=== PATIENT | male | born 1935 | race Caucasian/White ===

== ENCOUNTER 2017-09-04 17:06 | Emergency (ER) | payer BC ==
[~2017-09-04] VITALS: Ht 165.1 cm; Wt 83.5 kg
[2017-09-04 17:17] VITALS: Ht 165.1 cm; Wt 83.5 kg
[2017-09-04 20:54] LABS: BASOPHIL % 0.7 % (0-2); CALCIUM 8.2 mg/dL (8.5-10.1); CARBON DIOXIDE 22.7 mmol/L (21-32); CHLORIDE SERUM 103 mmol/L (98-107); CREATININE SERUM 0.8 mg/dL (0.7-1.3); GLUCOSE SERUM 100 mg/dL (74-106); PLATELET COUNT 181 x10^3mcL (130-400); POTASSIUM SERUM 3.6 mmol/L (3.5-5.1); RED CELL DISTRIBUTION WIDTH 13.7 % (11.5-14.5); SODIUM SERUM 136 mmol/L (136-145)
[2017-09-04 20:58] LABS: ALKALINE PHOSPHATASE 148 U/L (46-116); ALT/SGPT 23 U/L (16-63); AST/SGOT 28 U/L (15-37); BILIRUBIN TOTAL 0.47 mg/dL (0.20-1.00); TOTAL PROTEIN, SERUM 7.3 g/dL (6.4-8.2)
[2017-09-04 20:59] LABS: ALBUMIN 3.3 g/dL (3.4-5.0)
[2017-09-04 21:40] VITALS: BP 126/78
== END 2017-09-04 21:40 | disposition home or self-care (01) ==
LOC: ED 17:06
PROVIDERS: Emergency Medicine
DX: R59.0 Localized enlarged lymph nodes (principal); R07.89 Other chest pain; I10 Essential (primary) hypertension
CPT/HCPCS: Q0092

== ENCOUNTER 2020-02-13 15:53 | Inpatient (IN) | payer BC, MEDICAID ==
[~2020-02-13] VITALS: Ht 165.1 cm; Wt 69.1 kg
[2020-02-13 16:10] VITALS: Ht 165.1 cm; Wt 69.1 kg
[2020-02-13 16:49] LABS: BASOPHIL % 1.8 % (0-2); PLATELET COUNT 143 x10^3mcL (130-400); RED CELL DISTRIBUTION WIDTH 13.9 % (11.5-14.5)
[2020-02-13 16:55] LABS: CALCIUM 9.4 mg/dL (8.5-10.1); CARBON DIOXIDE 26.7 mmol/L (21-32); CHLORIDE SERUM 98 mmol/L (98-107); GLUCOSE SERUM 104 mg/dL (74-106); POTASSIUM SERUM 4.1 mmol/L (3.5-5.1); SODIUM SERUM 134 mmol/L (136-145)
[2020-02-13 17:04] LABS: ALBUMIN 4.2 g/dL (3.4-5.0); ALKALINE PHOSPHATASE 109 U/L (46-116); ALT/SGPT 31 U/L (16-63); BILIRUBIN TOTAL 1.1 mg/dL (0.20-1.00); TOTAL PROTEIN, SERUM 7.8 g/dL (6.4-8.2)
[2020-02-13 17:06] LABS: AST/SGOT 27 U/L (15-37)
[2020-02-13 17:38] LABS: T3 TOTAL 0.87 ng/mL
[2020-02-13 17:41] LABS: FREE T4 1.21 ng/dL (0.76-1.46); FREE THYROXINE INDEX 3.7 ug/dL (1.4-4.5); T4(THYROXINE) 9.9 ug/dL (4.7-13.3)
[2020-02-13] MEDS ORDERED: AMLODIPINE BESY10 M2 PO (18:29)
[2020-02-13] MEDS ORDERED: PANTOPRAZOLE SO20 M1 PO (18:29)
[2020-02-13] MEDS ORDERED: COZ50 PO (18:30)
[2020-02-13 20:02] LABS: microscopic required? NO
[2020-02-13 20:10] LABS: UA SPECIFIC GRAVITY <=1.005 (1.005-1.035); urine erythrocyte NEGATIVE (NEGATIVE)
[2020-02-13 20:13] LABS: CHOLESTEROL/HDL RATIO 2.4; MAGNESIUM 2.1 mg/dL (1.8-2.4); PHOSPHOROUS 3.6 mg/dL (2.5-4.9)
[2020-02-13 20:18] LABS: AMPHETAMINE QUAL UR NONE DETECTED (See below)
[2020-02-13 20:46] VITALS: BP 122/72
[2020-02-14] MEDS ORDERED: NOVAPLUS F0.05 MG/Ac (01:17)
[2020-02-14] MEDS ORDERED: PAROXETINE HCL10 MG (01:17)
[2020-02-14 06:12] VITALS: BP 126/78
[2020-02-14 07:15] LABS: PLATELET COUNT 165 x10^3mcL (130-400); RED CELL DISTRIBUTION WIDTH 14.2 % (11.5-14.5)
[2020-02-14 07:30] LABS: CALCIUM 8.9 mg/dL (8.5-10.1); CARBON DIOXIDE 24.6 mmol/L (21-32); CHLORIDE SERUM 104 mmol/L (98-107); CREATININE SERUM 0.8 mg/dL (0.7-1.3); GLUCOSE SERUM 80 mg/dL (74-106); MAGNESIUM 2.1 mg/dL (1.8-2.4); PHOSPHOROUS 3.4 mg/dL (2.5-4.9); SODIUM SERUM 138 mmol/L (136-145)
[2020-02-14 08:42] VITALS: BP 111/67
[2020-02-14 11:58] VITALS: BP 120/88
[2020-02-14] MEDS ORDERED: MAAL PO (13:21)
[2020-02-14] MEDS ORDERED: PRILOSEC OTC20 M1 PO (13:22)
[2020-02-14 17:07] VITALS: BP 102/68
[2020-02-14 20:34] VITALS: BP 103/64
[2020-02-15 05:42] VITALS: BP 99/64
[2020-02-15 08:40] VITALS: BP 96/77
[2020-02-15 12:51] VITALS: BP 122/68
[2020-02-15 13:04] VITALS: BP 122/68
== END 2020-02-15 14:10 | disposition home or self-care (01) | DRG 392 ==
LOC: ED 15:53 → DU 18:25
PROVIDERS: Emergency Medicine; ADMIT Internal Medicine; ATTEND Internal Medicine
DX: K21.9 Gastro-esophageal reflux disease without esophagitis (principal); I45.2 Bifascicular block; I10 Essential (primary) hypertension; Z90.49 Acquired absence of other specified parts of digestive tract; E86.0 Dehydration; M19.90 Unspecified osteoarthritis, unspecified site; R63.4 Abnormal weight loss; Z68.24 Body mass index [BMI] 24.0-24.9, adult
CPT/HCPCS: 83880; 84439; 85378; G0378; Q0092